=== PATIENT | male | born 1985 | race African-American/Black ===

== ENCOUNTER 2017-09-26 09:30 | Emergency (ER) | payer OTHER | END 2017-09-26 11:05 | disposition home or self-care (01) | LOC: E/R 09:30 | DX: J06.9 Acute upper respiratory infection, unspecified (principal); Z87.891 Personal history of nicotine dependence | CPT/HCPCS: 99283; Z7502 ==

== ENCOUNTER 2018-01-25 09:48 | Emergency (ER) | payer OTHER | END 2018-01-25 11:17 | disposition home or self-care (01) | LOC: FTE 09:48 | DX: M54.9 Dorsalgia, unspecified (principal); M62.838 Other muscle spasm; Z87.891 Personal history of nicotine dependence | CPT/HCPCS: 99283; Z7502 ==

== ENCOUNTER 2018-01-30 08:55 | Emergency (ER) | payer OTHER ==
[2018-01-30 10:11] LABS: ADD UMIC YES; UR ASCORBIC ACID NEGATIVE (NEGATIVE); UR BILIRUBIN (Dip) NEGATIVE (NEGATIVE); UR BLOOD (Dip) 2+ mg/dL (NEGATIVE); UR CLARITY CLEAR (CLEAR); UR COLOR YELLOW (YELLOW); UR GLUCOSE (Dip) NEGATIVE (NEGATIVE); UR KETONES (Dip) NEGATIVE (NEGATIVE); UR LEUKOCYTE ESTERASE (Dip) 1+ Leu/ul (NEGATIVE); UR NITRITE (Dip) NEGATIVE (NEGATIVE); UR RBC 5 /HPF (0-5); UR SPECIFIC GRAVITY (Dip) 1.009 (1.003-1.030); UR TOTAL PROTEIN (Dip) NEGATIVE (NEGATIVE); UR UROBILINOGEN (Dip) NEGATIVE (NEGATIVE); UR WBC 7 /HPF (0-5)
[2018-01-30] MEDS: SOD CHLORIDE 0.9% 1,000 ML IV (10:17)
[2018-01-30] MEDS: KETOROLAC 30 MG INJ IV (10:20)
[2018-01-30] MEDS: LORAZEPAM 2 MG INJ IV (10:20)
[2018-01-30] MEDS: DEXAMETHASONE 10 MG/ML 1 ML INJ IV (10:20)
[2018-01-30 10:38] LABS: ADD MAN DIFF? NO
[2018-01-30 10:40] LABS: WHITE BLOOD COUNT 7.8 10^3/ul (4.8-10.8)
[2018-01-30 10:40] LABS: BASOPHIL # 0.1 10^3/ul (0.0-0.1); BASOPHILS % 0.6 % (0.0-2.0); EOSINOPHILS # 0.3 10^3/ul (0.0-0.5); EOSINOPHILS % 3.3 % (0.0-7.0); HEMATOCRIT 40.6 % (42.0-52.0); HEMOGLOBIN 13.6 g/dl (14.0-18.0); LYMPHOCYTES # 2.9 10^3/ul (0.8-2.9); LYMPHOCYTES % 36.6 % (15.0-51.0); MEAN CORPUSCULAR HEMOGLOBIN 31.6 pg (29.0-33.0); MEAN CORPUSCULAR HGB CONC 33.5 g/dl (32.0-37.0); MEAN CORPUSCULAR VOLUME 94.2 fl (82.0-101.0); MEAN PLATELET VOLUME 10.7 fl (7.4-10.4); MONOCYTE # 0.4 10^3/ul (0.3-0.9); MONOCYTES % 5.6 % (0.0-11.0); NEUTROPHIL # 4.2 10^3/ul (1.6-7.5); NEUTROPHILS % 53.8 % (39.0-77.0); PLATELET COUNT 248 10^3/UL (140-415); RED BLOOD COUNT 4.31 10^6/ul (4.70-6.10); RED CELL DISTRIBUTION WIDTH 11.8 % (11.5-14.5)
[2018-01-30 10:58] LABS: ALANINE AMINOTRANSFERASE 50 IU/L (13-69); ALBUMIN 4.4 g/dl (3.3-4.9); ALBUMIN/GLOBULIN RATIO 1.29; ALKALINE PHOSPHATASE 75 IU/L (42-121); ANION GAP 16 (8-16); ASPARTATE AMINO TRANSFERASE 38 IU/L (15-46); BILIRUBIN,INDIRECT 0.6 mg/dl (0-1.1); BILIRUBIN,TOTAL 0.6 mg/dl (0.2-1.3); BLOOD UREA NITROGEN 14 mg/dl (7-20); CALCIUM 8.9 mg/dl (8.4-10.2); CARBON DIOXIDE 25 mmol/L (21-31); CHLORIDE 108 mmol/L (97-110); GLUCOSE 81 mg/dl (70-220); LIPASE 70 U/L (23-300); POTASSIUM 3.8 mmol/L (3.5-5.1); SODIUM 145 mmol/L (135-144); TOTAL PROTEIN 7.8 g/dl (6.1-8.1)
[2018-01-30 11:23] LABS: TROPONIN-I < 0.012 ng/ml (0.000-0.120)
== END 2018-01-30 12:03 | disposition home or self-care (01) ==
LOC: FTE 08:55
DX: S49.91XA Unspecified injury of right shoulder and upper arm, initial encounter (principal); F17.210 Nicotine dependence, cigarettes, uncomplicated; X58.XXXA Exposure to other specified factors, initial encounter; Y92.9 Unspecified place or not applicable
CPT/HCPCS: 71045; 73010; 80053; 81001; 83690; 84484; 85025; 93005; 96361; 96374; 96375; 99285-25

== ENCOUNTER 2018-02-02 09:06 | Emergency (ER) | payer OTHER ==
[2018-02-02] MEDS: ACETAMINOPHEN 325 MG TAB PO (09:58)
[2018-02-02] MEDS: SODIUM CHLORIDE 0.9% 1L BAG IV* (09:59)
[2018-02-02] MEDS: KETOROLAC 15 MG INJ IV (09:59)
[2018-02-02 10:21] LABS: ADD MAN DIFF? NO
[2018-02-02 10:27] LABS: BASOPHIL # 0.1 10^3/ul (0.0-0.1); BASOPHILS % 0.4 % (0.0-2.0); EOSINOPHILS # 0.4 10^3/ul (0.0-0.5); EOSINOPHILS % 2.2 % (0.0-7.0); HEMATOCRIT 43.6 % (42.0-52.0); HEMOGLOBIN 14.8 g/dl (14.0-18.0); LYMPHOCYTES % 15.1 % (15.0-51.0); MEAN CORPUSCULAR HEMOGLOBIN 32.2 pg (29.0-33.0); MEAN CORPUSCULAR HGB CONC 33.9 g/dl (32.0-37.0); MEAN PLATELET VOLUME 10.9 fl (7.4-10.4); MONOCYTE # 1.2 10^3/ul (0.3-0.9); MONOCYTES % 6.2 % (0.0-11.0); NEUTROPHIL # 14.8 10^3/ul (1.6-7.5); NEUTROPHILS % 75.6 % (39.0-77.0); PLATELET COUNT 243 10^3/UL (140-415); RED BLOOD COUNT 4.59 10^6/ul (4.70-6.10); RED CELL DISTRIBUTION WIDTH 11.7 % (11.5-14.5)
[2018-02-02 10:27] LABS: WHITE BLOOD COUNT 19.6 10^3/ul (4.8-10.8)
[2018-02-02 10:51] LABS: ANION GAP 18 (8-16); BLOOD UREA NITROGEN 14 mg/dl (7-20); CALCIUM 9.5 mg/dl (8.4-10.2); CARBON DIOXIDE 25 mmol/L (21-31); CHLORIDE 107 mmol/L (97-110); CREATININE 0.98 mg/dl (0.61-1.24); GLUCOSE 108 mg/dl (70-220); POTASSIUM 3.6 mmol/L (3.5-5.1); SODIUM 146 mmol/L (135-144)
== END 2018-02-02 11:56 | disposition home or self-care (01) ==
LOC: E/R 09:06
DX: J06.9 Acute upper respiratory infection, unspecified (principal); M79.1 Myalgia; D72.828 Other elevated white blood cell count; F17.210 Nicotine dependence, cigarettes, uncomplicated; R07.89 Other chest pain
CPT/HCPCS: 36415; 71045; 80048; 85025; 93005; 96374; 99285-25